=== PATIENT | female | born 1980 | race Caucasian/White ===

== ENCOUNTER 2023-03-30 07:44 | Emergency (ER) | payer BC ==
[2023-03-30] MEDS ORDERED: Sodium Chloride 0.9% 10 ML Syringe FLUSH PRN (08:04)
[2023-03-30] MEDS ORDERED: Ondansetron 4 MG/2 ML SDV IVPUSH ONE (08:08)
[2023-03-30] MEDS ORDERED: HYDROmorphone 0.5 MG/0.5 ML Syringe IVPUSH ONE ×2 (08:08→10:05)
[2023-03-30] MEDS ORDERED: Lactated Ringers 1,000 ML IV ONE (08:33)
[2023-03-30 08:44] LABS: BASOPHILS PERCENT AUTO 0.2 % (0.0-1.0); HEMATOCRIT 44.7 % (37.0-47.0); HEMOGLOBIN 15.5 gm/dl (12.0-16.0); IMMATURE GRAN ABSOLUTE AUTO 0.06 K/mm3 (0.00-0.05); IMMATURE GRAN PERCENT AUTO 0.4 % (0.0-0.4); LYMPHOCYTES PERCENT AUTO 6.7 % (24.0-44.0); MEAN CORPUSCULAR HEMOGLOBIN 31.8 pg (28.0-32.0); MEAN CORPUSCULAR HGB CONC 34.7 g/dl (32.0-36.0); MEAN CORPUSCULAR VOLUME 91.8 fl (83.0-99.0); MEAN PLATELET VOLUME 10.1 fl (9.4-12.3); MONOCYTES ABSOLUTE AUTO 0.3 K/mm3 (0.0-0.8); MONOCYTES PERCENT AUTO 1.8 % (0.0-8.0); NEUTROPHILS ABSOLUTE AUTO 12.9 K/mm3 (1.8-7.7); NEUTROPHILS PERCENT AUTO 90.9 % (41.0-71.0); PLATELET COUNT,PLT 375 K/mm3 (150-400); RED BLOOD CELL COUNT 4.87 M/mm3 (4.10-5.30); WHITE BLOOD CELL COUNT,WBC 14.16 K/mm3 (3.9-11.3)
[2023-03-30 09:09] LABS: A/G RATIO 0.8 (1-2); ALANINE AMINOTRANSFERASE,ALT 19 U/L (14-59); ALBUMIN 4.1 g/dl (3.4-5.0); ALKALINE PHOSPHATASE 66 U/L (46-116); ANION GAP 18.7 (5-15); ASPARTATE AMNIOTRANSFERASE,AST 12 U/L (15-37); BILIRUBIN TOTAL 0.9 mg/dL (0.2-1.0); BLOOD UREA NITROGEN,BUN 13 mg/dL (7-18); BUN/CREATININE RATIO 14.4 (14-18); CARBON DIOXIDE,CO2 21 mEq/L (21-32); CHLORIDE,CL 98 mEq/L (98-107); CREATININE 0.9 mg/dL (0.55-1.02); EST CRCL DRUG DOSING (CG) 85.97 mL/min; ESTIMATED GFR 82 mL/min (>60); GLUCOSE RANDOM 144 mg/dL (70-99); LIPASE 37 U/L (16-77); POTASSIUM,K 3.7 mEq/L (3.5-5.1); SODIUM,NA 134 mEq/L (136-145)
[2023-03-30 09:12] LABS: TROPONIN I HIGH SENSITIVITY < 4 pg/mL (<=51)
[2023-03-30 09:33] LABS: SLIDE REVIEW ABNORMAL SMEAR
[2023-03-30] MEDS ORDERED: Metoclopramide 10 MG/2 ML SDV IVPUSH ONE (10:06)
[2023-03-30 12:43] VITALS: BP 134/72; PULSE 75
== END 2023-03-30 12:40 | disposition home or self-care (01) ==
LOC: JD.ED 07:44
DX: K80.40 Calculus of bile duct with cholecystitis, unspecified, without obstruction (principal); Z91.041 Radiographic dye allergy status
CPT/HCPCS: 36415; 71045; 76705; 80053; 83690; 84484; 84703; 85025; 93005; 96361; 96374; 96375; 96376; 99284; J1170; J2405; J2765; J3490; J7120; 93010; 99283

== ENCOUNTER 2024-04-16 06:15 | Day surgery (SDC) | payer BC ==
[~2024-04-16 06:15] MED LIST: Sodium Chloride 0.9% 10 ML Syringe FLUSH PRN; Sodium Chloride 0.9% 10 ML Syringe FLUSH SCH
[2024-04-16] MEDS ORDERED: Ondansetron 4 MG/2 ML SDV ONE (06:26)
[2024-04-16] MEDS ORDERED: Ketorolac 30 MG/ML SDV ONE (06:26)
[2024-04-16] MEDS ORDERED: fentaNYL 250 MCG/5 ML SDV ONE (06:26)
[2024-04-16] MEDS ORDERED: Lactated Ringers 1,000 ML ONE (06:26)
[2024-04-16] MEDS ORDERED: Propofol 200 MG/20 ML SDV ONE (06:26)
[2024-04-16] MEDS ORDERED: Lidocaine 1% PF 2 ML SDV ONE ×2 (06:26)
[2024-04-16] MEDS ORDERED: dexmedeTOMIDine HCl 200 MCG/2 ML SDV ONE (06:26)
[2024-04-16] MEDS ORDERED: Lidocaine 1% 4 ML ONE (06:26)
[2024-04-16] MEDS ORDERED: ceFAZolin 2 GM Vial ONE (06:26)
[2024-04-16] MEDS ORDERED: Dexamethasone 4 MG/ML 5 ML MDV ONE (06:26)
[2024-04-16] MEDS ORDERED: Midazolam 1 MG/ML 2 ML SDV ONE (06:26)
[2024-04-16] MEDS ORDERED: Rocuronium 50 MG/5 ML Vial ONE (06:26)
[2024-04-16] MEDS: Lactated Ringers 1,000 ML IV SCH (06:30)
[2024-04-16 06:36] LABS: BASOPHILS PERCENT AUTO 0.3 % (0.0-1.0); EOSINOPHILS ABSOLUTE AUTO 0.1 K/mm3 (0.0-0.4); EOSINOPHILS PERCENT AUTO 0.7 % (0.0-6.0); HEMATOCRIT 45.3 % (37.0-47.0); HEMOGLOBIN 15.3 gm/dl (12.0-16.0); IMMATURE GRAN ABSOLUTE AUTO 0.04 K/mm3 (0.00-0.05); IMMATURE GRAN PERCENT AUTO 0.3 % (0.0-0.4); LYMPHOCYTES ABSOLUTE AUTO 2.7 K/mm3 (1.0-4.8); MEAN CORPUSCULAR HEMOGLOBIN 31.3 pg (28.0-32.0); MEAN CORPUSCULAR HGB CONC 33.8 g/dl (32.0-36.0); MEAN CORPUSCULAR VOLUME 92.6 fl (83.0-99.0); MONOCYTES ABSOLUTE AUTO 0.8 K/mm3 (0.0-0.8); MONOCYTES PERCENT AUTO 6.7 % (0.0-8.0); NEUTROPHILS ABSOLUTE AUTO 8.7 K/mm3 (1.8-7.7); PLATELET COUNT,PLT 316 K/mm3 (150-400); RED BLOOD CELL COUNT 4.89 M/mm3 (4.10-5.30); WHITE BLOOD CELL COUNT,WBC 12.45 K/mm3 (3.9-11.3)
[2024-04-16] MEDS ORDERED: Ondansetron 4 MG/2 ML SDV IVPUSH PRN (06:48)
[2024-04-16] MEDS ORDERED: HYDROmorphone 0.5 MG/0.5 ML Syringe IVPUSH PRN (06:48)
[2024-04-16 06:55] LABS: ANION GAP 16.7 (5-15); BUN/CREATININE RATIO 17.8 (14-18); CALCIUM 9.7 mg/dL (8.5-10.1); CREATININE 0.9 mg/dL (0.55-1.02); EST CRCL DRUG DOSING (CG) 85.1 mL/min; POTASSIUM,K 3.7 mEq/L (3.5-5.1)
[2024-04-16] MEDS: EPINEPHrine 1 MG/ML SDV ONE (07:36)
[2024-04-16] MEDS: Bupivacaine 0.5% 10 ML SDV ONE (07:36)
[2024-04-16] MEDS ORDERED: HYDROmorphone 0.5 MG/0.5 ML Syringe ONE (07:50)
[2024-04-16] MEDS: Bupivacaine 0.25% 10 ML SDV ONE (08:00)
[2024-04-16] MEDS ORDERED: ePHEDrine 50 MG/ML SDV ONE (08:15)
[2024-04-16] MEDS ORDERED: Sugammadex Sodium 200 MG/2 ML VIAL IV ONE (08:26)
[2024-04-16] MEDS: fentaNYL 100 MCG/2 ML SDV IVPUSH PRN (09:18)
[2024-04-16] MEDS: Acetaminophen/oxyCODONE 325-5 MG Tab PO PRN (09:45)
[2024-04-16 12:51] VITALS: BP 118/72; PULSE 78
== END 2024-04-16 12:20 | disposition home or self-care (01) ==
LOC: JD.SDS 06:15
PROVIDERS: ATTEND Obstetrics & Gynecology
DX: D25.1 Intramural leiomyoma of uterus (principal); N80.03 Adenomyosis of the uterus; N83.8 Other noninflammatory disorders of ovary, fallopian tube and broad ligament; F41.9 Anxiety disorder, unspecified
CPT/HCPCS: 36415; 58552; 80048; 81025; 85025; 86850; 86900; 86901; A9270; J0171; J0665; J0690; J1100; J1171; J1885; J2250; J2405; J2704; J3010; J3490; J7120; 00944